=== PATIENT | female | born 1990 | race Caucasian/White ===

== ENCOUNTER → 2017-11-01 | Outpatient (CLI) | payer OTHER ==
--- NOTE | 2017-11-03 09:53 | RADIOLOGY IMAGING REPORT ---
FACILITY: [facility] - [place] PATIENT NAME: BENITA ROBB : [id number] MR: [id number] V: [id number] EXAM DATE: [id number] ORDERING PHYSICIAN: MARCO VELIZ TECHNOLOGIST: Mildred Ervin PROCEDURE:BILATERAL DIAGNOSTIC DIGITAL MAMMOGRAM WITH CAD ASSISTED INTERPRETATION AND 3D BREAST TOMOSYNTHESIS. COMPARISON:None. INDICATIONS:POSSIBLE LUMP UPPER OUTER QUADRANT OF THE LEFT BREAST. FINDINGS: Moderately dense heterogeneous fibroglandular tissue is seen throughout the breasts. There was no demonstration of malignant appearing mass, malignant appearing calcification or secondary sign of malignancy in either breast. Today's left breast ultrasound revealed no sonographic abnormality, therefore, clinical followup recommended for patient's left breast lump. DIAGNOSTIC CATEGORY 2--BENIGN FINDING. RECOMMENDATIONS: CLINICAL EVALUATION. IMPRESSION: BI-RADS 2: No significant abnormality identified, therefore, clinical followup recommended for patient's left breast lump. Images were reviewed with R2CAD and 3D breast tomosynthesis. Dictated by: Lisa Benton M.D. on 11/01/2017 at 15:47 Transcribed by: LEON on 11/02/2017 at 19:03 Approved by: Lisa Benton M.D. on 11/03/2017 at 9:52 [facility]
--- NOTE | 2017-11-03 09:53 | RADIOLOGY IMAGING REPORT ---
FACILITY: [facility] - [place] PATIENT NAME: BENITA ROBB : [id number] MR: [id number] V: [id number] EXAM DATE: ORDERING PHYSICIAN: MARCO VELIZ TECHNOLOGIST: Josie Fletcher PROCEDURE: LEFT BREAST ULTRASOUND COMPARISON:None. INDICATIONS:PALPABLE LUMP UPPER OUTER QUADRANT OF THE LEFT BREAST. FINDINGS: The left breast was imaged in the 12 o'clock, 1 o'clock, 2 o'clock and 3 o'clock positions revealing no sonographic abnormality. Today's mammogram likewise revealed no abnormality therefore clinical followup is recommended. DIAGNOSTIC CATEGORY 2--BENIGN FINDING. RECOMMENDATIONS: CLINICAL EVALUATION. IMPRESSION: BI-RADS 2: No sonographic abnormality identified in the upper outer quadrant of the left breast, therefore, clinical followup recommended for patient's palpable findings. Images were reviewed with R2CAD and 3D breast tomosynthesis. Dictated by: Lisa Benton M.D. on 11/01/2017 at 15:53 Transcribed by: LEON on 11/02/2017 at 18:57 Approved by: Lisa Benton M.D. on 11/03/2017 at 9:52 [facility]
== END ==
LOC: US 14:02
PROVIDERS: ATTEND Obstetrics & Gynecology
DX: N63.20 Unspecified lump in the left breast, unspecified quadrant (principal)
CPT/HCPCS: 77062; 77066